=== PATIENT | male | born 1935 | race Two or more races ===

== ENCOUNTER 2017-03-31 09:47 | Emergency (ER) | payer MEDICARE ==
[2017-03-31 10:10] VITALS: BP 132/71; PULSE 88; O2SAT 95
[2017-03-31] MEDS ORDERED: Bacitracin 500 Units/gm Oint Foilpak UD TOP ONE (10:58)
--- NOTE | 2017-03-31 11:02 | C.PDOC ---
History Of Present Illness 81yo male, presents to the ED for evaluation of injury to his left knee after falling 5 days ago. Patient denies any head injury, loss of consciousness at time of the fall. He is unsure if his tetanus vaccinations is up to date. Patient currently denies any headache, neck pain, and offers no other medical complaints. Time Seen by Provider: 03/31/17 10:23 Chief Complaint (Nursing): Lower Extremity Problem/Injury History Per: Patient History/Exam Limitations: no limitations Onset/Duration Of Symptoms: Days (5) Additional History Per: Patient - Knee Description Of Injury: Fell Past Medical History Reviewed: Historical Data, Nursing Documentation, Vital Signs Vital Signs: Last Vital Signs Temp 98.3 F 03/31/17 11:19 Pulse 88 03/31/17 10:08 Resp 18 03/31/17 11:19 BP 132/71 03/31/17 10:08 Pulse Ox 95 03/31/17 11:02 - Medical History PMH: HTN Surgical History: No Surg Hx - [facility] TETANUS TOXOID ADMINIST (07/17/13) Family History: States: No Known Family Hx, Unknown Family Hx - Social History Hx Tobacco Use: No Hx Alcohol Use: Yes Hx Substance Use: No - Immunization History Hx Tetanus Toxoid Vaccination: No Hx Influenza Vaccination: No Hx Pneumococcal Vaccination: No Review Of Systems Musculoskeletal: Positive for: Other (injury to left knee). Negative for: Neck Pain Neurological: Negative for: Headache Physical Exam - Physical Exam Appears: Non-toxic, No Acute Distress Skin: Warm, Dry Head: Atraumatic, Normacephalic Neck: Normal ROM, No Midline Cervical Tenderness, No Paracervical Tenderness, No Step Off Deformity, Supple Extremity: Normal ROM, No Deformity, No Swelling, Other (abrasion noted to anterior left knee) Neurological/Psych: Oriented x3, Normal Speech, Normal Cognition ED Course And Treatment O2 Sat by Pulse Oximetry: 95 (RA) Pulse Ox Interpretation: Normal Medical Decision Making Medical Decision Making: Impression: 81yo male with abrasion to left knee Plan: -- Wound cleaned, bacitracin and sterile dressing applied. TDAP booster given. Patient informed to follow up with his PCP. Disposition - Disposition Disposition: HOME/ ROUTINE Disposition Time: 11:00 Condition: STABLE Prescriptions: Bacitracin Ointment [Bacitracin] 30 gm TOP BID #1 tube Instructions: Abrasion (ED) Forms: [facility] ([place]), General Discharge Instructions - POA Present On Arrival: None - Clinical Impression Clinical Impression: Abrasion hip/leg - Scribe Statement The provider has reviewed the documentation as recorded by the Jenniferibflorecita Apple All medical record entries made by the Jenniferibflorecita were at my direction and personally dictated by me. I have reviewed the chart and agree that the record accurately reflects my personal performance of the history, physical exam, medical decision making, and the department course for this patient. I have also personally directed, reviewed, and agree with the discharge instructions and disposition.
[2017-03-31] MEDS ORDERED: Bacitracin 500 Units/gm Oint Foilpak UD ONE (11:09)
[2017-03-31] MEDS ORDERED: Tetanus/Diphtheria Toxoids 0.5 ml Syringe IM ONE (11:10)
[2017-03-31 11:20] VITALS: RESP 18; TEMP 98.3
== END 2017-03-31 11:20 | disposition home or self-care (01) ==
LOC: C.ER 09:47
DX: S70.212A Abrasion, left hip, initial encounter (principal); S80.812A Abrasion, left lower leg, initial encounter; W01.0XXA Fall on same level from slipping, tripping and stumbling without subsequent striking against object, initial encounter; Y93.89 Activity, other specified; Y92.89 Other specified places as the place of occurrence of the external cause; Z23 Encounter for immunization